=== PATIENT | male | born 1950 | race Hispanic/Latino ===

== ENCOUNTER 2024-09-26 16:00 | Outpatient (CLI) | payer OTHER | END 2024-09-26 16:01 | disposition home or self-care (01) | LOC: RAD 16:00 | PROVIDERS: ATTEND Family Medicine | DX: K21.9 Gastro-esophageal reflux disease without esophagitis (principal); R06.02 Shortness of breath; R07.9 Chest pain, unspecified; I10 Essential (primary) hypertension; J98.11 Atelectasis; K31.89 Other diseases of stomach and duodenum | CPT/HCPCS: 71046; 74018 ==